=== PATIENT | female | born 1990 | race Caucasian/White ===

== ENCOUNTER 2018-02-12 23:34 | Emergency (ER) | payer SELFPAY ==
[~2018-02-12] VITALS: Ht 167.6 cm; Wt 52.6 kg
[~2018-02-12 23:34] MED LIST: FLEXERIL5 MG PO; MOTRIN800 MG PO; PERCOCET 7.51 TABLET PO; ROXICODONE5 MG PO
[2018-02-12] MEDS ORDERED: PREDNISONE20 MG PO (23:48)
[2018-02-12] MEDS ORDERED: PROVENTIL HFA6.7 GM IH (23:48)
[2018-02-12] MEDS ORDERED: ZITHROMAX Z-PA250 MG PO (23:48)
[2018-02-13 00:17] VITALS: BP 111/59
== END 2018-02-13 00:34 | disposition home or self-care (01) ==
LOC: EME 23:34
DX: J20.9 Acute bronchitis, unspecified (principal); Z71.6 Tobacco abuse counseling; M54.2 Cervicalgia; G89.29 Other chronic pain; F32.9 Major depressive disorder, single episode, unspecified; F17.200 Nicotine dependence, unspecified, uncomplicated; Z98.890 Other specified postprocedural states; Z88.8 Allergy status to other drugs, medicaments and biological substances
CPT/HCPCS: 94640; 99281; 99284; J7512